=== PATIENT | female | born 2000 | race Caucasian/White ===

== ENCOUNTER → 2023-10-11 13:17 | Outpatient (REF) | payer OTHER, SELFPAY | LOC: PNTC 13:17 | PROVIDERS: ATTENDING PHYSICIAN Advanced Practice Midwife | DX: Z36.0 Encounter for antenatal screening for chromosomal anomalies (principal); Z36.82 Encounter for antenatal screening for nuchal translucency | CPT/HCPCS: 76801; 76813 ==

== ENCOUNTER 2024-04-17 05:55 | Inpatient (IN) | payer OTHER, SELFPAY ==
[2024-04-17 06:01] VITALS: BMI 33.4
[2024-04-17 06:14] VITALS: BP 129/73
[2024-04-17] MEDS: LR 1000 IV ×2 (06:27→08:38)
[2024-04-17 06:38] LABS: % Basophils 0.4 % (0-2); % Immature Granulocytes 1.4 % (0-0.5); % Lymphocytes 20.6 % (20.5-51.1); % Monocytes 7.8 % (1.7-9.3); % Neutrophils 68.8 % (42.2-75.2); Absolute Basophils 0.1 10^3/uL (0-0.2); Absolute Eosinophils 0.1 10^3/uL (0-0.7); Absolute Immature Granulocytes 0.2 10^3/uL (0-0.05); Absolute Lymphocytes 2.8 10^3/uL (1.2-3.4); Absolute Monocytes 1.1 10^3/uL (0.1-0.6); Absolute Neutrophils 9.3 10^3/uL (1.4-6.5); Hemoglobin 12.5 g/dL (12.0-16.0); Mean Corp Hgb Conc. 34.7 g/dL (33.0-37.0); Mean Corpuscular Hgb 30.3 pg (27.0-31.0); Mean Corpuscular Volume 87.4 fL (81.0-99.0); Mean Platelet Volume 10.7 fL (7.4-10.4); Nucleated Red Blood Cells % 0 %; Platelet Count 199 10^3/uL (130-400); Red Blood Cell Count 4.12 10^6/uL (4.20-5.40); Red Cell Dist. Width 13.5 % (11.5-14.5); White Blood Cell Count 13.4 10^3/uL (4.8-10.8)
[2024-04-17] MEDS: PENICILLIN 110 UNITS IV (06:45)
[2024-04-17] MEDS: LEXAPRO 5 MG PO (07:27)
[2024-04-17] MEDS: SUBLIMAZE 100 MCG EPIDURAL (08:58)
[2024-04-17] MEDS: FENTANYL/BUPIVACAINE 100 EPIDURAL (08:59)
[2024-04-17] MEDS: PITOCIN 30 UNITS/NSS 500 ML IV (09:39)
[2024-04-17] MEDS: PENICILLIN 55 UNITS IV ×2 (10:47→15:00)
[2024-04-17] MEDS: XYLOCAINE-MPF 1% VIAL 30 ML INFIL (15:28)
[2024-04-18] MEDS: MOTRIN 600 MG PO ×4 (00:58→23:05)
[2024-04-18] MEDS: LEXAPRO 5 MG PO (08:21)
[2024-04-18] MEDS: TYLENOL 650 MG PO ×3 (08:35→23:05)
[2024-04-18 11:57] LABS: Syphilis/T. pallidum Ab Reflex Negative (Negative)
[2024-04-19] MEDS: TYLENOL 650 MG PO (05:05)
[2024-04-19] MEDS: MOTRIN 600 MG PO (05:06)
[2024-04-19] MEDS: LEXAPRO 5 MG PO (08:08)
== END 2024-04-19 13:00 | disposition home or self-care (01) | DRG 807 ==
LOC: LDRP 05:55
PROVIDERS: Obstetrics & Gynecology; ADMITTING PHYSICIAN Advanced Practice Midwife
PROC: 0HQ9XZZ Repair Perineum Skin, External Approach (ICD-10-PCS; 2024-04-17)
PROC: 4A1HXCZ Monitoring of Products of Conception, Cardiac Rate, External Approach (ICD-10-PCS; 2024-04-17)
PROC: 10907ZC Drainage of Amniotic Fluid, Therapeutic from Products of Conception, Via Natural or Artificial Opening (ICD-10-PCS; 2024-04-17)
PROC: 10E0XZZ Delivery of Products of Conception, External Approach (ICD-10-PCS; 2024-04-17)
DX: O48.0 Post-term pregnancy (principal); Z37.0 Single live birth; O99.824 Streptococcus B carrier state complicating childbirth; Z3A.40 40 weeks gestation of pregnancy; O70.0 First degree perineal laceration during delivery; O99.344 Other mental disorders complicating childbirth; F41.9 Anxiety disorder, unspecified; Z86.16 Personal history of COVID-19; Z88.8 Allergy status to other drugs, medicaments and biological substances
CPT/HCPCS: 36415; 85025; 86780; 86850; 86900; 86901